=== PATIENT | female | born 2000 | race Caucasian/White ===

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

== ENCOUNTER 2019-12-01 16:18 | Emergency (ER) | payer OTHER ==
[~2019-12-01] VITALS: Ht 142.2 cm; Wt 96.0 kg
[~2019-12-01 16:18] MED LIST changes: +GUAI118L13 PO; +NAPR-695 PO; -NAPR375T3 PO; +PRED20TA PO; +SULF1TAB24 PO
[2019-12-01 16:40] VITALS: BP 142/100
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
[2019-12-01] MEDS ORDERED: IBUP800T19 PO (17:30)
== END 2019-12-01 17:45 | disposition home or self-care (01) ==
LOC: ER 16:18
DX: R07.81 Pleurodynia (principal); M54.2 Cervicalgia; G89.11 Acute pain due to trauma; J45.909 Unspecified asthma, uncomplicated; G43.909 Migraine, unspecified, not intractable, without status migrainosus; V43.63XA Car passenger injured in collision with pick-up truck in traffic accident, initial encounter; Y93.89 Activity, other specified; Y92.488 Other paved roadways as the place of occurrence of the external cause; Y99.8 Other external cause status
CPT/HCPCS: 71046; 72040; 99284

== ENCOUNTER 2021-03-18 15:59 | Emergency (ER) | payer OTHER ==
[~2021-03-18] VITALS: Ht 142.2 cm; Wt 122.6 kg
[~2021-03-18 15:59] MED LIST changes: +IBUP800T19 PO
[2021-03-18] MEDS ORDERED: IOHEXOL 350 MG/ML 100 ML VIAL. IV ONE (16:30)
[2021-03-18] MEDS ORDERED: IV NORMAL SALINE 1,000ML 1,000 ML IV ONE (16:30)
--- NOTE | 2021-03-18 16:37 | PHYS DOC ---
Past History Past Medical History: Asthma, Migraines Past Surgical History: No Surgical History Smoking: Non-smoker Alcohol Use: Rarely Drug Use: None General Adult EDM: Chief Complaint: DYSPNEA/RESPIRATOY DISTRESS HPI: HPI: 21 year old female presents with sharp chest pain and shortness of breath that began this morning. Reports her symptoms worsened while she was moving around at work but improved when she was able to lie down. Reports radiation of the pain into her back and rates it 8/10 at its worst. She has a history of anxiety and notes she was feeling anxious earlier when her symptoms began. She attempted taking Tylenol and using her albuterol inhaler this morning without relief of symptoms. States her pain is improved but she still feels short of breath. No known exposure to COVID. She has not been vaccinated. Denies fevers/chills, vomiting/diarrhea, headache, abdominal pain, or cough. Review of Systems: Review of Systems: Constitutional: Denies fever or chills Eyes: Denies redness or eye pain HENT: Denies nasal congestion or sore throat Respiratory: Reports shortness of breath. Denies cough Cardiovascular: Reports chest pain. Denies palpitations GI: Reports nausea. Denies abdominal pain or vomiting : Denies dysuria or hematuria Musculoskeletal: Denies back pain or joint pain Integument: Denies rash or skin lesions Neurologic: Denies headache, focal weakness or sensory changes Psychiatric: Reports anxiety. Denies depression. Complete systems were reviewed and found to be within normal limits, except as documented in this note. Current Medications: Current Meds: Current Medications Medications (Trade) Dose Ordered Sig/[facility] Start Time Stop Time Status Last Admin Dose Admin Iohexol (Omnipaque 350 Mg/ml) 100 ml 1X ONCE 03/18/21 16:30 03/18/21 16:31 UNV Sodium Chloride 1,000 ml @ 1,000 mls/hr 1X ONCE 03/18/21 16:30 03/18/21 17:29 UNV Allergies: Allergies: Allergies Coded Allergies Type Severity Reaction Last Updated Verified No Known Drug Allergies 02/10/15 No Physical Exam: PE: Constitutional: Well developed, well nourished, no acute distress, non-toxic appearance HENT: Normocephalic, atraumatic Eyes: Conjunctiva normal, no discharge Neck: Normal range of motion, no tenderness, supple Lungs & Thorax: No respiratory distress, equal chest rise and fall. Clear to auscultation bilaterally. Heart tachycardic with regular rhythm. Abdomen: Mild epigastric tenderness with palpation. Soft and otherwise nontender. Skin: Warm, dry, no erythema, no rash Back: No tenderness, no CVA tenderness Extremities: No tenderness, ROM intact, no edema Neurologic: Alert and oriented X 3, normal motor function, normal sensory function, no focal deficits noted Psychologic: Affect normal, judgment normal EKG: EK BPM, sinus tachycardia, no ST segment elevation, QRS 82ms, QT/QTc 425ms 1854: 108 BPM, sinus tachycardia, no ST segment elevation, QRS 80ms, QT/QTc 322ms/435ms Radiology/Procedures: Radiology/Procedures: PROCEDURE: CT ANGIOGRAPHY CHEST Exam: CT of chest with contrast INDICATION: Chest pain, short of air TECHNIQUE: Sequential axial images through the chest obtained following the administration of 73 mL of Isovue-370 IV contrast. Sagittal and coronal reformatted images were reconstructed from the axial data and reviewed. 3-D reformatted images were reconstructed from the axial data and reviewed. Exposure: One or more of the following in the visualized dose reduction techniques were utilized for this examination: 1. Automated exposure control 2. Adjustment of the MA and/or KV according to patient size 3. Use of iterative of reconstructive technique Comparisons: Chest x-ray 12/01/2019 FINDINGS: Visualized portions of the thyroid are unremarkable. No enlarged mediastinal lymph nodes are identified. Heart size is normal. No pericardial effusion. Thoracic aorta has a normal course and caliber. Pulmonary artery is not enlarged. No pulmonary embolus identified within the main, lobar or segmental pulmonary arteries. Airways are patent. No consolidation or pneumothorax. No suspicious lung nodules. No pleural effusion or thickening. Visualized upper abdomen is unremarkable. No suspicious osseous lesions or acute fractures. IMPRESSION: No pulmonary embolus identified within the main, lobar or segmental pulmonary arteries. Electronically signed by: Hansel Dubois MD (03/18/2021 5:46 PM) [facility] Heart Score: C/O Chest Pain: Yes HEART Score for Chest Pain: HEART Score for Chest Pain Response (Comments) Value History Slighlty/Non-Suspicious 0 ECG Normal 0 Age < 45 0 Risk Factors No Risk Factors 0 Troponin < Normal Limit 0 Total 0 Risk Factors: Risk Factors: DM, Current or recent (<one month) smoker, HTN, HLP, family history of CAD, obesity. Risk Scores: Score 0 - 3: 2.5% MACE over next 6 weeks - Discharge Home Score 4 - 6: 20.3% MACE over next 6 weeks - Admit for Clinical Observation Score 7 - 10: 72.7% MACE over next 6 weeks - Early Invasive Strategies Course & Med Decision Making: Course & Med Decision Making 21 year old female presents with atypical chest pain. Administered IV fluids and 0.5 of Ativan for anxiety with improvement of symptoms. Labs and imaging unremarkable for any acute process. Patient stable for discharge with outpatient follow-up. Provided appropriate referrals to establish care with PCP. Discussed findings and plan with patient, who acknowledges understanding and agreement. Arleth Disclaimer: Arleth Disclaimer: This electronic medical record was generated, in whole or in part, using a voice recognition dictation system. Departure Departure: Impression: Primary Impression: Atypical chest pain Disposition: HOME / SELF CARE / HOMELESS Condition: STABLE Referrals: PCP,NO (PCP) Patient Instructions: Anxiety and Panic Attacks, [id number], Chest Pain (Nonspecific), [id number] Scripts Lorazepam (ATIVAN ) 0.5 Mg Tablet 0.5 MG PO PRN TID PRN for ANXIETY, #10 TAB Prov: THEA STOUT DO 03/18/21 THEA STOUT DO Mar 18, 2021 16:37
[2021-03-18 17:26] LABS: BASO # 0.1 x10^3/uL (0.0-0.2); BASO % 1 % (0-3); EOS # 0.1 x10^3/uL (0.0-0.7); EOS % 1 % (0-3); HEMATOCRIT 35.9 % (36.0-47.0); HEMOGLOBIN 11.8 g/dL (12.0-15.5); LYMPH # 1.8 x10^3/uL (1.0-4.8); LYMPH % 20 % (24-48); MEAN CORPUSCULAR HEMOGLOBIN 28 pg (25-35); MEAN CORPUSCULAR HGB CONC 33 g/dL (31-37); MEAN CORPUSCULAR VOLUME 85 fL (79-100); MONO # 0.5 x10^3/uL (0.0-1.1); MONO % 6 % (0-9); NEUT # 6.7 x10^3uL (1.8-7.7); NEUT % 73 % (31-73); PLATELET COUNT 315 x10^3/uL (140-400); RED BLOOD COUNT 4.22 x10^6/uL (3.50-5.40); RED CELL DISTRIBUTION WIDTH 14.2 % (11.5-14.5); WHITE BLOOD COUNT 9.2 x10^3/uL (4.0-11.0)
[2021-03-18 17:35] LABS: CALCIUM 8.6 mg/dL (8.5-10.1); CREATININE 0.6 mg/dL (0.6-1.0); POTASSIUM 4.2 mmol/L (3.5-5.1)
--- NOTE | 2021-03-18 17:49 | RAD ---
Exam: CT of chest with contrast INDICATION: Chest pain, short of air TECHNIQUE: Sequential axial images through the chest obtained following the administration of 73 mL o f Isovue-370 IV contrast. Sagittal and coronal reformatted images were reconstructed from the axial d rip and reviewed. 3-D reformatted images were reconstructed from the axial data and reviewed. Exposure: One or more of the following in the visualized dose reduction techniques were utilized for this examination: 1. Automated exposure control 2. Adjustment of the MA and/or KV according to patient size 3. Use of iterative of reconstructive technique Comparisons: Chest x-ray 12/01/2019 FINDINGS: Visualized portions of the thyroid are unremarkable. No enlarged mediastinal lymph nodes are identifi ed. Heart size is normal. No pericardial effusion. Thoracic aorta has a normal course and caliber. Pulmon brenda artery is not enlarged. No pulmonary embolus identified within the main, lobar or segmental pulmo nary arteries. Airways are patent. No consolidation or pneumothorax. No suspicious lung nodules. No pleural effusion or thickening. Visualized upper abdomen is unremarkable. No suspicious osseous lesions or acute fractures. IMPRESSION: No pulmonary embolus identified within the main, lobar or segmental pulmonary arteries. Electronically signed by: Hansel Dubois MD (03/18/2021 5:46 PM) [facility]
[2021-03-18 17:53] LABS: ALBUMIN 3.6 g/dL (3.4-5.0); ALBUMIN/GLOBULIN RATIO 1.1 (1.0-1.7); TOTAL BILIRUBIN 0.3 mg/dL (0.2-1.0); TOTAL PROTEIN 6.9 g/dL (6.4-8.2)
--- NOTE | 2021-03-18 18:05 | EKG ---
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
[2021-03-18 18:37] LABS: BACTERIA,URINE FEW /HPF (0-FEW); BILIRUBIN,URINE NEG (NEG); CLARITY,URINE CLOUDY; COLOR,URINE YELLOW; GLUCOSE,URINE NEG (NEG); NITRITE,URINE NEG (NEG); RBC,URINE 0 /HPF (0-2); SQUAMOUS EPITHELIAL CELL,UR FEW /LPF; UROBILINOGEN,URINE 0.2 mg/dL (0.2 mg/dL); WBC,URINE OCC /HPF (0-4)
[2021-03-18 18:48] VITALS: BP 123/76
[2021-03-18] MEDS ORDERED: LORA0.5T21 PO (18:49)
--- NOTE | 2021-03-19 04:44 | EKG ---
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
== END 2021-03-18 19:13 | disposition home or self-care (01) ==
LOC: ER 15:59
DX: R07.89 Other chest pain (principal); J45.909 Unspecified asthma, uncomplicated; G43.909 Migraine, unspecified, not intractable, without status migrainosus
CPT/HCPCS: 36415; 71275; 80053; 81001; 81025; 82553; 83690; 83735; 83880; 84484; 85025; 93005; 96361; 96374; 99285; J2060; J7030; Q9967